=== PATIENT | male | born 1960 | race Hispanic/Latino ===

== ENCOUNTER 2018-08-19 09:49 | Emergency (ER) | payer SELFPAY ==
[2018-08-19 10:30] VITALS: BP 169/104
[2018-08-19] MEDS ORDERED: TORADOL IM ONE (11:46)
--- NOTE | 2018-08-19 11:50 | Emergency Department Report ---
Blank Doc - Documentation Documentation: Patient is a 58-year-old male who is presenting with left flank pain for approximately a week. The patient states he now has a small amount of stinging dysuria for the past 2448 hrs. Patient states the pain is 8 out of 10 in severity. He is not noticed any blood in the urine. Patient never had a kidney stone in the past. He did also denies any fever nausea vomiting at this time. Focused physical exam patient does have some left CVA tenderness. Patient is alert and oriented 3 just in mild distress secondary to pain. Patient is not vomiting and appears very stable. Patient will be moved to our results waiting area awaiting blood work urinalysis and a CT abdomen and pelvis without contrast to evaluate for possibility of an obstructive uropathy. Patient is given Toradol here in the emergency department for pain control.
[2018-08-19 11:52] LABS: Bilirubin,Urine NEG (Negative); Blood,Urine NEG (Negative); Color,Urine Yellow (Yellow); Protein,Urine <15 mg/dL mg/dL (Negative); Urobilinogen,Urine < 2.0 mg/dL (<2.0)
[2018-08-19 12:32] LABS: Alanine Aminotransferase 132 units/L (7-56); Albumin 4.6 g/dL (3.9-5); BUN/Creatinine Ratio 10; Blood Urea Nitrogen 8 mg/dL (9-20); Calcium 9.5 mg/dL (8.4-10.2); Hemolysis Index 12
--- NOTE | 2018-08-19 13:10 | Cat Scan Report ---
CT ABDOMEN AND PELVIS WITHOUT CONTRAST INDICATION: Left flank pain. COMPARISON: None similar at this institution. FINDINGS: Noncontrast abdomen and pelvis CT performed. LUNG BASES: Right coronary calcifications. Slight bibasilar scarring. Slight nonspecific distal esophageal wall prominence/thickening, not excluded for gastroesophageal reflux and/or hiatal hernia, amongst others. ABDOMEN: Please note that sensitivity to detect small visceral lesions is limited due to the absence of intravenous or oral contrast. Diffuse fatty hepatic infiltration within right hepatic lobe approximately 18.8 cm in midclavicular length. Otherwise grossly unremarkable unenhanced liver, spleen, incompletely distended gallbladder, pancreas, adrenals, nonaneurysmal abdominal aorta with few atherosclerotic calcifications, IVC and nonhydronephrotic kidneys. Slight nonspecific bilateral perinephric stranding. A 0.8 cm left interpolar cortical cyst possible, axial image 73, series 2. Nonopacified GI tract evaluation limited, though grossly nonobstructive. Small bowel anastomotic changes in the left hemipelvis as on axial images 136-153. Cecum slightly low lying in the right lower quadrant with a normal appendix. Usual colonic stool. No ascites or definite size significant adenopathy. Possible prior left lower quadrant ostomy site as on axial image 114. PELVIS: Slightly prominent prostate may be age-appropriate, though also correlated for clinically and with PSA. Few prostatic calcifications. Otherwise grossly unremarkable non-opacified urinary bladder. Rectal anastomosis also seen as on axial image 153. No free fluid or definite significant adenopathy. Approximately 2.5 cm diameter bilateral fat containing inguinal hernias as on axial image 166. Slight levocurvature apex about L3. Multilevel spinal degenerative changes as spurring, endplate irregularities/Schmorl's nodes and disc degeneration/narrowing. CONCLUSION: 1. No definite acute CT abnormality on this limited, unenhanced exam to explain patient's left flank pain, as described. 2. Various other findings, including fatty liver, bowel postsurgical changes, bilateral fat containing inguinal hernias and moderate multilevel spinal degenerative changes, amongst others, as detailed above. Please correlate. Thank you for the opportunity to participate in this patient's care.
--- NOTE | 2018-08-19 13:24 | Emergency Department Report ---
ED General Adult HPI - General Chief complaint: Abdominal Pain Stated complaint: KIDNEY PAIN Time Seen by Provider: 08/19/18 11:38 Source: patient Mode of arrival: Ambulatory Limitations: No Limitations - History of Present Illness Initial comments: Patient is a 58-year-old male who is presenting with left flank pain for approximately a week. The patient states he now has a small amount of stinging dysuria for the past 2448 hrs. Patient states the pain is 8 out of 10 in severity. He is not noticed any blood in the urine. Patient never had a kidney stone in the past. He did also denies any fever nausea vomiting at this time. Focused physical exam patient does have some left CVA tenderness. Patient is alert and oriented 3 just in mild distress secondary to pain. Patient is not vomiting and appears very stable. Severity scale (0 -10): 8 - Related Data Previous Rx's Medication Instructions Recorded Last Taken Type Ciprofloxacin HCl [Cipro] 500 mg PO BID #14 tablet 08/19/18 Unknown Rx Ibuprofen [Motrin] 800 mg PO Q8HR PRN #20 tablet 08/19/18 Unknown Rx methOCARBAMOL [Robaxin TAB] 500 mg PO Q6H PRN #15 tablet 08/19/18 Unknown Rx traMADol [Ultram] 50 mg PO Q6HR PRN #12 tablet 08/19/18 Unknown Rx Allergies Allergy/AdvReac Type Severity Reaction Status Date / Time codeine Allergy Itching Verified 08/19/18 10:30 ED Review of Systems ROS: Stated complaint: KIDNEY PAIN Other details as noted in HPI Comment: All other systems reviewed and negative ED Past Medical Hx - Past Medical History Previous Medical History?: Yes Hx Hypertension: Yes Hx Diabetes: Yes Additional medical history: diverticulitis - Surgical History Past Surgical History?: Yes Additional Surgical History: colon surgery - Social History Smoking Status: Current Every Day Smoker Substance Use Type: Alcohol - Medications Home Medications: Home Medications Medication Instructions Recorded Confirmed Last Taken Type Ciprofloxacin HCl [Cipro] 500 mg PO BID #14 tablet 08/19/18 Unknown Rx Ibuprofen [Motrin] 800 mg PO Q8HR PRN #20 tablet 08/19/18 Unknown Rx methOCARBAMOL [Robaxin TAB] 500 mg PO Q6H PRN #15 tablet 08/19/18 Unknown Rx traMADol [Ultram] 50 mg PO Q6HR PRN #12 tablet 08/19/18 Unknown Rx ED Physical Exam - General Limitations: No Limitations General appearance: alert, in no apparent distress - Head Head exam: Present: atraumatic, normocephalic - Eye Eye exam: Present: normal appearance - ENT ENT exam: Present: mucous membranes moist - Neck Neck exam: Present: normal inspection - Respiratory Respiratory exam: Present: normal lung sounds bilaterally. Absent: respiratory distress, wheezes, rales, rhonchi, stridor - Cardiovascular Cardiovascular Exam: Present: regular rate, normal rhythm, normal heart sounds. Absent: systolic murmur, diastolic murmur, rubs, gallop - GI/Abdominal GI/Abdominal exam: Present: soft, normal bowel sounds. Absent: distended, tenderness, guarding, rebound - Rectal Rectal exam: Present: deferred - Extremities Exam Extremities exam: Present: normal inspection - Back Exam Back exam: Present: normal inspection, CVA tenderness (L) - Neurological Exam Neurological exam: Present: alert, oriented X3 - Psychiatric Psychiatric exam: Present: normal affect, normal mood - Skin Skin exam: Present: warm, dry, intact, normal color. Absent: rash ED Course Vital Signs 08/19/18 08/19/18 08/19/18 10:26 12:00 12:13 Temperature 97.9 F Pulse Rate 82 Respiratory 18 18 18 Rate Blood Pressure 169/104 O2 Sat by Pulse 98 Oximetry ED Medical Decision Making - Lab Data Result diagrams: 08/19/18 11:50 Lab Results 08/19/18 08/19/18 Range/Units 11:00 11:50 Sodium 138 (137-145) mmol/L Potassium 4.1 (3.6-5.0) mmol/L Chloride 99.6 (98-107) mmol/L Carbon Dioxide 25 (22-30) mmol/L Anion Gap 18 mmol/L BUN 8 L (9-20) mg/dL Creatinine 0.8 (0.8-1.5) mg/dL Estimated GFR > 60 ml/min BUN/Creatinine Ratio 10 % Glucose 102 H (75-100) mg/dL Calcium 9.5 (8.4-10.2) mg/dL Total Bilirubin 0.70 (0.1-1.2) mg/dL AST 121 H (5-40) units/L ALT 132 H (7-56) units/L Alkaline Phosphatase 60 (35-129) units/L Total Protein 7.5 (6.3-8.2) g/dL Albumin 4.6 (3.9-5) g/dL Albumin/Globulin Ratio 1.6 % Urine Color Yellow (Yellow) Urine Turbidity Clear (Clear) Urine pH 7.0 (5.0-7.0) Ur Specific [place] 1.005 (1.003-1.030) Urine Protein <15 mg/dl (Negative) mg/dL Urine Glucose (UA) Neg (Negative) mg/dL Urine Ketones Neg (Negative) mg/dL Urine Blood Neg (Negative) Urine Nitrite Neg (Negative) Urine Bilirubin Neg (Negative) Urine Urobilinogen < 2.0 (<2.0) mg/dL Ur Leukocyte Esterase Neg (Negative) Urine WBC (Auto) 1.0 (0.0-6.0) /HPF Urine RBC (Auto) 1.0 (0.0-6.0) /HPF - Radiology Data Patient: NATANAEL IBARRA MR#: [id number] : 1960 Acct:[id number] Age/Sex: 58 / M ADM Date: 08/19/18 Loc: ED Attending Dr: Ordering Physician: EMERITA PATEL MD Date of Service: 08/19/18 Procedure(s): CT abdomen pelvis wo con Accession Number(s): [id number] cc: EMERITA PATEL MD CT ABDOMEN AND PELVIS WITHOUT CONTRAST INDICATION: Left flank pain. COMPARISON: None similar at this institution. FINDINGS: Noncontrast abdomen and pelvis CT performed. LUNG BASES: Right coronary calcifications. Slight bibasilar scarring. Slight nonspecific distal esophageal wall prominence/thickening, not excluded for gastroesophageal reflux and/or hiatal hernia, amongst others. ABDOMEN: Please note that sensitivity to detect small visceral lesions is limited due to the absence of intravenous or oral contrast. Diffuse fatty hepatic infiltration within right hepatic lobe approximately 18.8 cm in midclavicular length. Otherwise grossly unremarkable unenhanced liver, spleen, incompletely distended gallbladder, pancreas, adrenals, nonaneurysmal abdominal aorta with few atherosclerotic calcifications, IVC and nonhydronephrotic kidneys. Slight nonspecific bilateral perinephric stranding. A 0.8 cm left interpolar cortical cyst possible, axial image 73, series 2. Nonopacified GI tract evaluation limited, though grossly nonobstructive. Small bowel anastomotic changes in the left hemipelvis as on axial images 136-153. Cecum slightly low lying in the right lower quadrant with a normal appendix. Usual colonic stool. No ascites or definite size significant adenopathy. Possible prior left lower quadrant ostomy site as on axial image 114. PELVIS: Slightly prominent prostate may be age-appropriate, though also correlated for clinically and with PSA. Few prostatic calcifications. Otherwise grossly unremarkable non-opacified urinary bladder. Rectal anastomosis also seen as on axial image 153. No free fluid or definite significant adenopathy. Approximately 2.5 cm diameter bilateral fat containing inguinal hernias as on axial image 166. Slight levocurvature apex about L3. Multilevel spinal degenerative changes as spurring, endplate irregularities/Schmorl's nodes and disc degeneration/narrowing. CONCLUSION: 1. No definite acute CT abnormality on this limited, unenhanced exam to explain patient's left flank pain, as described. 2. Various other findings, including fatty liver, bowel postsurgical changes, bilateral fat containing inguinal hernias and moderate multilevel spinal degenerative changes, amongst others, as detailed above. Please correlate. Thank you for the opportunity to participate in this patient's care. Transcribed By: RS Dictated By: ELIZABETH MEYERS MD Electronically Authenticated By: ELIZABETH MEYERS MD Signed Date/Time: 08/19/18 9997 - Medical Decision Making Patient is a 58-year-old male who is presenting with left flank pain as well as some very mild dysuria for approximately [address] shows a great amount of degenerative changes to the lower back. Patient does state that he hurts worse when he is moving and a good portion of his back pain could be secondary to radiculopathy. Patient's prostate was slightly enlarged and because of his mild dysuria will also be treating the patient for mild early prostatitis as well. No kidney stones were seen. Patient does have a fatty liver and slight elevation of his LFTs however the patient does drink alcohol daily. Patient be discharged home with follow-up with [facility] for internal medicine care. Patient lastly he has been off his blood pressure medicines for several years and was hoping to be placed on his blood pressure medicines again. Patient was given refills. Critical care attestation.: If time is entered above; I have spent that time in minutes in the direct care of this critically ill patient, excluding procedure time. ED Disposition Clinical Impression: Musculoskeletal back pain, Dysuria, Hypertensive urgency Prostatitis Qualifiers: Prostatitis type: unspecified Qualified Code(s): N41.9 - Inflammatory disease of prostate, unspecified Disposition: TO HOME OR SELFCARE Is pt being admited?: No Does the pt Need Aspirin: No Condition: Stable Instructions: Hypertension (ED), Back Pain (ED), Prostatitis (ED), Benign Prostatic Hypertrophy (ED) Additional Instructions: The majority of her back pain is most likely coming from the arthritis in you back however because of your pain with urination we will be treating with antibiotics as well to cover for prostatitis Referrals: [facility] [Outside] - 3-5 Days Time of Disposition: 13:25
== END 2018-08-19 13:43 | disposition home or self-care (01) ==
LOC: ED 09:49
DX: N41.9 Inflammatory disease of prostate, unspecified (principal); I16.0 Hypertensive urgency; I10 Essential (primary) hypertension; M54.5 Low back pain; E11.9 Type 2 diabetes mellitus without complications; F17.200 Nicotine dependence, unspecified, uncomplicated; K57.92 Diverticulitis of intestine, part unspecified, without perforation or abscess without bleeding; Z88.5 Allergy status to narcotic agent
CPT/HCPCS: 36415; 74176; 80048; 80053; 81001; 96372; 99284; J1885

== ENCOUNTER 2022-06-26 10:30 | Outpatient (CLI) | payer OTHER ==
--- NOTE | 2022-06-26 12:18 | XRay Report ---
BILATERAL KNEES 2 VIEWS INDICATION: CHRONIC LEG PAIN. COMPARISON: None. IMPRESSION: Mild medial compartment joint space narrowing is identified in both knees. The lateral c ompartments and patellofemoral compartments are within normal limits. No evidence for fracture or bon e lesion. Trace joint effusion is suspected in the right knee. There are mild soft tissue vascular ca lcifications bilaterally. Signer Name: Hardeep Jones Jr, MD Signed: 06/26/2022 12:13 PM Workstation Name: [id number]
== END 2022-06-26 10:31 | disposition home or self-care (01) ==
LOC: XRAY 10:30
PROVIDERS: ATTEND Internal Medicine
DX: M17.0 Bilateral primary osteoarthritis of knee (principal); M61.462 Other calcification of muscle, left lower leg; M61.461 Other calcification of muscle, right lower leg